=== PATIENT | female | born 1960 | race Caucasian/White ===

== ENCOUNTER 2021-07-17 15:33 | Inpatient (IN) | payer OTHER ==
[~2021-07-17] VITALS: Ht 154.9 cm; Wt 119.7 kg
[2021-08-19] MEDS ORDERED: LEVO-T100 MCG PO (10:09)
[2021-08-19] MEDS ORDERED: OMEPRAZOLE40 MG PO (10:09)
[2021-08-19] MEDS ORDERED: TRAZODONE HCL50 MG PO (10:09)
[2021-08-19] MEDS ORDERED: IRBESARTAN300 MG PO (10:10)
[2021-08-19] MEDS ORDERED: HYDROCHLOROTH12.5 M1 PO (10:11)
[2021-08-19] MEDS ORDERED: IBUPROFEN 800800 M1 PO (10:11)
[2021-08-19] MEDS ORDERED: MOTION SICKNESS25 M1 PO (10:12)
[2021-08-19] MEDS ORDERED: XANAX 0.25 MG0.25 MG PO (10:12)
[2021-08-20 08:00] VITALS: BP 145/80
[2021-08-20 19:30] VITALS: BP 141/79
--- NOTE | 2021-08-21 03:15 | NUR ---
ASSESSED AT START OF SHIFT. PT RESTING IN BED ON 2L OF O2. POST OP GASTRIC BYBASS. IV INTACT AND FLUIDS INFUSING. IV PAIN MEDS AND NAUSEA MEDICATION PROVIDED. BLOOD TINGED SPUTUM NOTED. FALL PREC IN PLACE AND CALL LIGHT AT REACH. SCD'S ON BLE WILL CONT TO MONITOR. NPO MAINTAINED AND NO FURTHER SIGNS OF DISCOMFORT.
[2021-08-21 04:47] VITALS: BP 114/61
[2021-08-21 07:15] VITALS: BP 121/65
--- NOTE | 2021-08-21 09:39 | NUR ---
Gastric bypass. Post op. Cm visited with bassem at bedside. She is A & o x 4, and able to make her needs known. Lives at home with her . She works outside the home at [employer]. Independent, No DME. No anticipated needs. Plans on discharge home tomorrow.
--- NOTE | 2021-08-21 10:17 | NUR ---
ASSUMED PT CARE THIS AM. PT IS ALERT & ORIENTED X4. EDUCATED AND INFORMED PT TO AMBULATE THIS AM. PT HAS BEEN AMBULATING THE HALLWAY. PT HAS [facility] CATH IN PLACE. PT C/O OF PAIN AND GIVEN PAIN MEDICATION PER PT REQUEST. PT IS ON TELE MONITOR ON. PT TOLERATED DIET WELL THIS AM. NO C/O OF NAUSEA AND VOMITING. WILL CONTINUE TO MONITOR PT. FOLLOW POC.
--- NOTE | 2021-08-21 10:38 | NUR ---
ORDERS FOR EVAL AND TREAT. SPOKE WITH Pt WHO STATES SHE JUST GOT BACK FROM A LONG WALK IN THE HALLS WITHOUT DIFFICULTY AND STATES SHE IS MOVING FINE. Pt DECLINING A FORMAL P.T. EVAL BUT SOUNDS LIKE SHE WOULD BE SAFE FOR HOME TOMORROW
[2021-08-21 16:00] VITALS: BP 129/64
[2021-08-21 21:22] VITALS: BP 141/80
--- NOTE | 2021-08-22 03:54 | NUR ---
ASSUMED CARE OF PT AT 1900. BEDSIDE REPORT RECIEVED. TATIANNA ASSESSMENT COMPLETE. PT DENIES ANY PAIN AT THIS TIME. MEDS GIVEN PER MAR. IVF INFUSING PER MAR. 4 ABDOMINAL LAP SITES CDI C DERMABOND, NO REDNESS OR HEAT NOTED AT SITE. ACTIVE BOWEL SOUNDS. PT UP AD MAI TO BATHROOM. ALL NEEDS MET, CALL LIGHT IN REACH
--- NOTE | 2021-08-22 04:55 | NUR ---
I AGREE WITH THE ASSESSMENT AND CHARTING OF NURSE HENRY FOR THIS PT.
[2021-08-22 07:14] VITALS: BP 125/61
--- NOTE | 2021-08-22 14:04 | NUR ---
Dc home, no needs. Will assist if needs arise.
--- NOTE | 2021-08-22 15:23 | NUR ---
PT ASSESSED AT START OF SHIFT. DOING WELL. SLEPT DURING THE NOC. UP IN THE CHAIR SINCE EARLY AM. AMBULATING STEADY IN HALLS. LAP SITES WELL APPROXIMATED. NO C/O PAIN. PASSING FLATUS. TOLERATING LIQUID DIET. DR. HARRISON IN AND PLANNING ON DISCHARGING THIS AFTERNOON.
[2021-08-22 15:56] VITALS: BP 125/61
== END 2021-08-22 16:58 | disposition home or self-care (01) | DRG 621 ==
LOC: PRE → TBA 08-20 06:48 → PRE 08-20 13:03 → 4S 08-20 17:42
PROVIDERS: ADMIT Surgery; ATTEND Surgery
DX: E66.01 Morbid (severe) obesity due to excess calories (principal); Z68.42 Body mass index [BMI] 45.0-49.9, adult; Z88.6 Allergy status to analgesic agent; Z88.1 Allergy status to other antibiotic agents; Z88.2 Allergy status to sulfonamides; Z88.8 Allergy status to other drugs, medicaments and biological substances; Z20.822 Contact with and (suspected) exposure to COVID-19
CPT/HCPCS: 10100; 10102; 50010; 50101; 50222; 50386; 50455; 50555; 51489; 51687; 52265; 52266; 54022; 54118; 55326; 56462; 56525; 56526; 56531; 57092; 58574; 58587; 58869; 58870; 58871; 58872; 58911; 62110; 62900; 70005

== ENCOUNTER → 2021-08-14 | Outpatient (CLI) | payer OTHER ==
[2021-08-14 14:22] LABS: ABSOLUTE NEUTROPHILS 10.8 thou/uL (1.4-8.2); BASOPHILS 0.7 % (0.0-2.0); EOSINOPHILS 6.5 % (0.0-3.0); HEMATOCRIT 43.1 % (37.0-47.0); HEMOGLOBIN 14.7 gm/dL (12.0-15.0); LYMPHOCYTES 9.8 % (24.0-44.0); MCH 29.2 pg (26.0-34.0); MCHC 34.1 g/dL (28.0-37.0); MCV 85.6 fL (80.0-100.0); MONOCYTES 4.6 % (1.0-8.0); PLATELET COUNT 382 thou/uL (150-400); POLYS 78.4 % (36.0-66.0); RBC 5.04 mil/uL (4.20-5.00); RDW 15.8 % (10.5-14.5); WBC 13.7 thou/uL (4.0-11.0)
[2021-08-14 14:37] LABS: CALCIUM 9.2 mg/dL (8.5-10.1); CREATININE 0.9 mg/dL (0.6-1.0); POTASSIUM 3.7 mmol/L (3.5-5.1); TOTAL BILIRUBIN 0.4 mg/dL (0.2-1.0); TOTAL PROTEIN 8.8 g/dL (6.4-8.2)
[2021-08-15 00:06] LABS: GLYCOHEMOGLOBIN (HGB A1C) 5.9 % (4.8-5.6)
== END ==
LOC: LAB 11:36
PROVIDERS: ATTEND Surgery
DX: Z01.812 Encounter for preprocedural laboratory examination (principal); K21.9 Gastro-esophageal reflux disease without esophagitis; I10 Essential (primary) hypertension; E78.2 Mixed hyperlipidemia; G47.33 Obstructive sleep apnea (adult) (pediatric); E66.01 Morbid (severe) obesity due to excess calories